=== PATIENT | male | born 1955 | race Caucasian/White ===

== ENCOUNTER → 2020-12-13 14:08 | Outpatient (BNVA) | payer MEDICAID, SELFPAY | PROVIDERS: Family Provider Family Medicine; PCP Family Medicine; Visit Provider Nurse Practitioner Family | DX: M54.9 Dorsalgia, unspecified (principal); W19.XXXA Unspecified fall, initial encounter; S32.019A Unspecified fracture of first lumbar vertebra, initial encounter for closed fracture; Q67.5 Congenital deformity of spine | CPT/HCPCS: 72072; 72100 ==